=== PATIENT | female | born 1950 | race Caucasian/White ===

== ENCOUNTER 2017-03-17 17:05 | Inpatient (IN) | payer OTHER ==
[~2017-03-17] VITALS: Ht 149.9 cm; Wt 89.8 kg
[~2017-03-17 17:05] MED LIST: ALBUTEROL1.25 MG/3 IH; ALL DAY ALLERGY10 M3 PO; BACTRIM,SEPT1 TABLET PO; CARVEDILOL12.5 MG PO; CARVEDILOL3.125 MG PO; LISINOPRIL2.5 MG PO; LISINOPRIL20 MG PO; LISINOPRIL5 MG PO; PREDNISONE20 MG PO; PROAIR HFA8.5 GM IH; SIMVASTATIN20 MG PO; SPIRONOLACTONE25 MG PO; ST. JOSEPH ASPI81 MG PO
[2017-03-17 18:25] LABS: CHLORIDE 97 mEq/L (99-109)
[2017-03-17 18:26] LABS: POTASSIUM 4.7 mEq/L (3.7-5.4); SODIUM 132 mEq/L (136-147)
[2017-03-17 18:27] LABS: GLUCOSE 105 mg/dL (70-99)
[2017-03-17 18:31] LABS: CREATININE 2.1 mg/dL (0.6-1.3); GFR ESTIMATE (CALCULATED) 25 mL/min/
[2017-03-17 18:32] LABS: UREA NITROGEN (BUN) 21 mg/dL (9-23)
[2017-03-17 18:39] LABS: TROP-I INTERPRETATION NEGATIVE; TROPONIN-I 0.05 ng/mL (0.0-0.30)
[2017-03-17 18:47] LABS: HEMATOCRIT 24.6 % (36.0-46.0); HEMOGLOBIN 7.8 G/DL (11.9-15.5); MCH 30.5 PG (29.0-34.0); MCHC 31.7 G/DL (30.0-36.0); MCV 96.1 FL (83-99); PLATELET COUNT 211 K/uL (156-360); RBC DIS.WIDTH-CV 18.8 % (11.8-14.6); RBC DIS.WIDTH-SD 65.2 % (39-53); RED BLOOD COUNT 2.56 M/uL (3.80-5.20); WHITE BLOOD COUNT 6.1 K/uL (4.1-10.2)
[2017-03-17] MEDS ORDERED: PROTONIX40 MG PO (19:35)
[2017-03-17] MEDS ORDERED: TAMIFLU75 MG PO (19:37)
[2017-03-17] MEDS ORDERED: ASPERCREME1 EACH TP (19:38)
[2017-03-17] MEDS ORDERED: IPRATROPIU0.2 MG/1 M IH (19:41)
[2017-03-17] MEDS ORDERED: PROAMATINE5 MG PO (19:41)
[2017-03-17] MEDS ORDERED: TYLENOL REGULA325 MG PO (19:42)
[2017-03-17] MEDS ORDERED: DUONEB 2.5-0.5 M3 ML AEROSOL (19:42)
[2017-03-17] MEDS ORDERED: LIORESAL10 MG PO (19:43)
[2017-03-17] MEDS ORDERED: COUMADIN1 MG PO ×2 (19:45→19:47)
[2017-03-17] MEDS ORDERED: LASIX40 MG PO (19:48)
[2017-03-17] MEDS ORDERED: K-DUR20 MEQ PO (19:48)
[2017-03-17] MEDS ORDERED: PLAVIX75 MG PO (19:49)
[2017-03-17] MEDS ORDERED: LIPITOR40 MG PO (19:49)
[2017-03-17] MEDS ORDERED: COLACE100 MG PO (19:50)
[2017-03-17] MEDS ORDERED: MELATIN3 MG PO (19:50)
[2017-03-18] VITALS (21 sets, daily range): BP systolic 101–161; BP diastolic 48–94
[2017-03-18 00:21] LABS: INTER. NORMALIZED RATIO 1.3
[2017-03-18 01:31] LABS: BASE EXCESS -3.3 mEq/L (-3 to +3); BICARBONATE 21.2 mEq/L (22-26); COMMENTS - BLOOD GASES A+C+; DEVICE NC; METHEMOGLOBIN 1.4 % (0-1.5); O2 FLOW 3 L/MIN; PCO2 35 mm Hg (35-45); PO2 60 mm Hg (80-100); SITE RR; TOTAL RESP RATE 28 resp/min; pH 7.39 (7.35-7.45)
[2017-03-18 06:23] LABS: INTER. NORMALIZED RATIO 1.5
[2017-03-18 08:49] LABS: BASOPHIL (%) 0.2 % (0-1); EOSINOPHIL (%) 0 % (0-5); HEMATOCRIT 27.7 % (36.0-46.0); HEMOGLOBIN 8.6 G/DL (11.9-15.5); IMMATURE GRANULOCYTE (%) 1.1 % (0.0-0.7); LYMPHOCYTE (%) 3.8 % (15-42); LYMPHOCYTE COUNT 0.4 K/uL (1.0-2.8); MCV 96.5 FL (83-99); MONOCYTE COUNT 0.3 K/uL (0-0.8); NEUTROPHIL (%) 91.9 % (45-76); NEUTROPHIL COUNT 8.7 K/uL (1.8-6.4); PLATELET COUNT 201 K/uL (156-360); RBC DIS.WIDTH-CV 18.9 % (11.8-14.6); RBC DIS.WIDTH-SD 65.5 % (39-53); RED BLOOD COUNT 2.87 M/uL (3.80-5.20); WHITE BLOOD COUNT 9.5 K/uL (4.1-10.2)
[2017-03-18 15:22] LABS: ALBUMIN 2.7 G/DL (3.2-4.8); CHLORIDE 94 MEQ/L (99-109); CREATININE 2.2 MG/DL (0.6-1.3); GFR ESTIMATE (CALCULATED) 24 mL/min/; GLUCOSE 142 mg/dL (70-99); PHOSPHORUS 5.3 mg/dL (2.5-4.9); POTASSIUM 4.3 MEQ/L (3.7-5.4); SODIUM 132 MEQ/L (136-147); UREA NITROGEN (BUN) 31 mg/dL (9-23)
[2017-03-18 16:45] LABS: IRON 82 MCG/DL (35-150); TRANSFERRIN (TIBC) 137.9 mg/dL (215-380); TRANSFERRIN SATUR. 59 % (20-55)
[2017-03-19] VITALS (13 sets, daily range): BP systolic 111–159; BP diastolic 60–98
[2017-03-19 05:26] LABS: HEMOGLOBIN 8.3 G/DL (11.9-15.5); MCH 29.2 PG (29.0-34.0); MCHC 30.7 G/DL (30.0-36.0); MCV 95.1 FL (83-99); NRBC (%) 0.3 /100 WBC (0-0); PLATELET COUNT 210 K/uL (156-360); RBC DIS.WIDTH-CV 18.6 % (11.8-14.6); RBC DIS.WIDTH-SD 65.1 % (39-53); RED BLOOD COUNT 2.84 M/uL (3.80-5.20); WHITE BLOOD COUNT 6.7 K/uL (4.1-10.2)
[2017-03-19 05:39] LABS: INTER. NORMALIZED RATIO 1.5
[2017-03-19 05:52] LABS: ALBUMIN 2.5 G/DL (3.2-4.8); CHLORIDE 98 MEQ/L (99-109); GFR ESTIMATE (CALCULATED) 32 mL/min/; GLUCOSE 114 mg/dL (70-99); MAGNESIUM 1.8 mg/dl (1.3-2.7); PHOSPHORUS 4.1 mg/dL (2.5-4.9); POTASSIUM 4.2 MEQ/L (3.7-5.4); SODIUM 134 MEQ/L (136-147); UREA NITROGEN (BUN) 23 mg/dL (9-23); VANCOMYCIN, TROUGH 12.1 MCG/ML (10-20)
[2017-03-19 05:53] LABS: CREATININE 1.7 MG/DL (0.6-1.3)
[2017-03-19 06:44] LABS: BASOPHIL (%) 0.1 % (0-1); EOSINOPHIL (%) 0 % (0-5); IMMATURE GRANULOCYTE (%) 1.8 % (0.0-0.7); LYMPHOCYTE (%) 9.5 % (15-42); LYMPHOCYTE COUNT 0.6 K/uL (1.0-2.8); MONOCYTE (%) 2.7 % (3-12); MONOCYTE COUNT 0.2 K/uL (0-0.8); NEUTROPHIL (%) 85.9 % (45-76); NEUTROPHIL COUNT 5.8 K/uL (1.8-6.4)
[2017-03-20] VITALS (7 sets, daily range): BP systolic 104–145; BP diastolic 69–80
[2017-03-20 05:57] LABS: INTER. NORMALIZED RATIO 1.6
[2017-03-20 06:16] LABS: ALBUMIN 2.7 G/DL (3.2-4.8); CHLORIDE 95 MEQ/L (99-109); CREATININE 2.1 MG/DL (0.6-1.3); GFR ESTIMATE (CALCULATED) 25 mL/min/; GLUCOSE 136 mg/dL (70-99); PHOSPHORUS 3.6 mg/dL (2.5-4.9); SODIUM 134 MEQ/L (136-147); VANCOMYCIN, TROUGH 13.7 MCG/ML (10-20)
[2017-03-20 06:17] LABS: POTASSIUM 3.1 MEQ/L (3.7-5.4); UREA NITROGEN (BUN) 42 mg/dL (9-23)
[2017-03-21 03:54] VITALS: BP 113/72
[2017-03-21 07:18] LABS: INTER. NORMALIZED RATIO 1.9
[2017-03-21 07:53] LABS: ALBUMIN 2.8 G/DL (3.2-4.8); CHLORIDE 97 MEQ/L (99-109); CREATININE 2.4 MG/DL (0.6-1.3); GFR ESTIMATE (CALCULATED) 21 mL/min/; GLUCOSE 128 mg/dL (70-99); PHOSPHORUS 3.5 mg/dL (2.5-4.9); SODIUM 136 MEQ/L (136-147); UREA NITROGEN (BUN) 50 mg/dL (9-23); VANCOMYCIN, TROUGH 12.7 MCG/ML (10-20)
[2017-03-21 07:57] LABS: POTASSIUM 3.8 MEQ/L (3.7-5.4)
[2017-03-21 08:13] VITALS: BP 121/62
[2017-03-21 16:00] VITALS: BP 132/69
[2017-03-21 20:50] VITALS: BP 112/67
[2017-03-21 23:54] VITALS: BP 110/62
[2017-03-22 03:49] VITALS: BP 112/57
[2017-03-22 07:00] LABS: C DIFF TOXIN POSITIVE (NEGATIVE)
[2017-03-22 07:04] LABS: INTER. NORMALIZED RATIO 2.3
[2017-03-22 07:15] LABS: ALBUMIN 2.8 G/DL (3.2-4.8); CHLORIDE 99 MEQ/L (99-109); CREATININE 2.5 MG/DL (0.6-1.3); GFR ESTIMATE (CALCULATED) 20 mL/min/; GLUCOSE 123 mg/dL (70-99); PHOSPHORUS 3.7 mg/dL (2.5-4.9); POTASSIUM 3.6 MEQ/L (3.7-5.4); SODIUM 137 MEQ/L (136-147); UREA NITROGEN (BUN) 51 mg/dL (9-23); URIC ACID 8.2 mg/dL (3.1-9.2)
[2017-03-22 07:20] VITALS: BP 136/92
[2017-03-22 12:16] VITALS: BP 146/98
[2017-03-22 20:12] VITALS: BP 136/82
[2017-03-22 23:29] VITALS: BP 119/80
[2017-03-23 04:43] VITALS: BP 121/67
[2017-03-23 06:52] LABS: ALBUMIN 2.7 G/DL (3.2-4.8); CHLORIDE 98 MEQ/L (99-109); CREATININE 2.3 MG/DL (0.6-1.3); GFR ESTIMATE (CALCULATED) 22 mL/min/; GLUCOSE 115 mg/dL (70-99); PHOSPHORUS 4.3 mg/dL (2.5-4.9); POTASSIUM 3.2 MEQ/L (3.7-5.4); SODIUM 140 MEQ/L (136-147); UREA NITROGEN (BUN) 52 mg/dL (9-23)
[2017-03-23 07:03] LABS: INTER. NORMALIZED RATIO 2.5
[2017-03-23 07:10] VITALS: BP 114/62
[2017-03-23 16:31] VITALS: BP 156/98
[2017-03-23 17:16] LABS: MAGNESIUM 1.2 mg/dl (1.3-2.7)
[2017-03-23 19:43] VITALS: BP 151/82
[2017-03-23 23:29] VITALS: BP 155/78
[2017-03-24 06:33] LABS: INTER. NORMALIZED RATIO 2.5
[2017-03-24 06:51] LABS: ALBUMIN 2.7 G/DL (3.2-4.8); CHLORIDE 98 MEQ/L (99-109); GFR ESTIMATE (CALCULATED) 26 mL/min/; GLUCOSE 88 mg/dL (70-99); PHOSPHORUS 3.3 mg/dL (2.5-4.9); POTASSIUM 3.1 MEQ/L (3.7-5.4); SODIUM 139 MEQ/L (136-147); UREA NITROGEN (BUN) 50 mg/dL (9-23)
[2017-03-24 06:52] LABS: MAGNESIUM 1.6 mg/dl (1.3-2.7)
[2017-03-24 07:20] VITALS: BP 134/63
[2017-03-24 15:53] VITALS: BP 114/57
[2017-03-24] MEDS ORDERED: CEFTIN500 MG PO (16:18)
[2017-03-24] MEDS ORDERED: COUMADIN1 MG PO (16:20)
[2017-03-24] MEDS ORDERED: LISINOPRIL2.5 MG PO (16:20)
[2017-03-24] MEDS ORDERED: VANCOMYCIN HCL250 MG PO (16:22)
[2017-03-24] MEDS ORDERED: PREDNISONE20 MG PO (16:26)
== END 2017-03-24 19:59 | DRG 189 ==
LOC: EME 17:05 → EDOF 19:00 → 4WEST 19:00 → ENRESERV 20:05 → 4SOUTH 23:47 → ENRESERV 03-18 01:52 → 4WEST 03-18 01:58 → ENRESERV 03-20 20:32 → 2EAST 03-20 23:39
PROVIDERS: Emergency Medicine; Internal Medicine; Internal Medicine Critical Care Medicine; Internal Medicine Nephrology; Specialist
PROC: 5A09357 Assistance with Respiratory Ventilation, Less than 24 Consecutive Hours, Continuous Positive Airway Pressure (ICD-10-PCS; principal; 2017-03-17)
PROC: 5A1D70Z Performance of Urinary Filtration, Intermittent, Less than 6 Hours Per Day (ICD-10-PCS; 2017-03-18)
DX: J96.01 Acute respiratory failure with hypoxia (principal); J18.9 Pneumonia, unspecified organism; J44.0 Chronic obstructive pulmonary disease with (acute) lower respiratory infection; I25.10 Atherosclerotic heart disease of native coronary artery without angina pectoris; I42.9 Cardiomyopathy, unspecified; I44.7 Left bundle-branch block, unspecified; I08.0 Rheumatic disorders of both mitral and aortic valves; I73.9 Peripheral vascular disease, unspecified; N17.0 Acute kidney failure with tubular necrosis; D63.1 Anemia in chronic kidney disease; E78.5 Hyperlipidemia, unspecified; I48.91 Unspecified atrial fibrillation; A04.72 Enterocolitis due to Clostridium difficile, not specified as recurrent; I13.2 Hypertensive heart and chronic kidney disease with heart failure and with stage 5 chronic kidney disease, or end stage renal disease; E66.01 Morbid (severe) obesity due to excess calories; B02.9 Zoster without complications; N18.6 End stage renal disease; J44.1 Chronic obstructive pulmonary disease with (acute) exacerbation; I50.23 Acute on chronic systolic (congestive) heart failure; Y95 Nosocomial condition; Z95.3 Presence of xenogenic heart valve; Z99.2 Dependence on renal dialysis; Z95.810 Presence of automatic (implantable) cardiac defibrillator; Z86.718 Personal history of other venous thrombosis and embolism; Z95.5 Presence of coronary angioplasty implant and graft; Z95.1 Presence of aortocoronary bypass graft; Z68.39 Body mass index [BMI] 39.0-39.9, adult; Z82.49 Family history of ischemic heart disease and other diseases of the circulatory system; Z87.891 Personal history of nicotine dependence
CPT/HCPCS: 36415; 36600; 71045; 71046; 80048; 80069; 80202; 82803; 83540; 83735; 84466; 84484; 84520; 84550; 85025; 85025 91; 85027; 85610; 86850; 86900; 86901; 86920; 87493; 87502; 87641; 93005; 93306; 94002; 94010; 94640; 94640 76; 94667; 94668; 94799; 97530 GO; 97530 GP; 99202; 99281; 99285; J0456; J0881; J1644; J1940; J2543; J2920; J2930; J3370; J3475; J7050; S0030

== ENCOUNTER → 2017-04-06 | Outpatient (CLI) | payer OTHER ==
[~2017-04-06] MED LIST changes: +ASPERCREME1 EACH TP; +CEFTIN500 MG PO; +COLACE100 MG PO; +COUMADIN1 MG PO; +DUONEB 2.5-0.5 M3 ML AEROSOL; +IPRATROPIU0.2 MG/1 M IH; +K-DUR20 MEQ PO; +LASIX40 MG PO; +LIORESAL10 MG PO; +LIPITOR40 MG PO; +MELATIN3 MG PO; +PLAVIX75 MG PO; +PROAMATINE5 MG PO; +PROTONIX40 MG PO; +TAMIFLU75 MG PO; +TYLENOL REGULA325 MG PO; +VANCOMYCIN HCL250 MG PO
== END | disposition home or self-care (01) ==
LOC: AMB 12:00
PROC: 02PYX3Z Removal of Infusion Device from Great Vessel, External Approach (ICD-10-PCS; principal; 2017-04-06)
DX: Z45.2 Encounter for adjustment and management of vascular access device (principal); Z95.2 Presence of prosthetic heart valve